=== PATIENT | female | born 1970 | race Caucasian/White ===

== ENCOUNTER 2017-09-21 11:54 | Emergency (ER) | payer MEDICAID ==
[~2017-09-21] VITALS: Ht 167.6 cm; Wt 63.0 kg
[2017-09-21 12:42] LABS: BASOPHILS # (AUTO) 0.1 X10'3 (0-0.2); BASOPHILS % (AUTO) 0.7 % (0-1); EOSINOPHILS # (AUTO) 0.5 X10'3 (0-0.9); EOSINOPHILS % (AUTO) 4.9 % (0-6); HEMATOCRIT 40.1 % (35.0-45.0); HEMOGLOBIN 13.4 g/dl (12.0-16.0); LYMPHOCYTES # (AUTO) 1.3 X10'3 (1.1-4.8); LYMPHOCYTES % (AUTO) 13.4 % (21-51); MEAN CORPUSCULAR HEMOGLOBIN 27.6 PG (27.0-31.0); MEAN CORPUSCULAR HGB CONC 33.4 % (33.0-36.5); MEAN CORPUSCULAR VOLUME 82.9 FL (78-98); MEAN PLATELET VOLUME 8.5 FL (7.4-10.4); MONOCYTES # (AUTO) 0.7 X10'3 (0-0.9); MONOCYTES % (AUTO) 6.8 % (2-12); NEUTROPHILS # (AUTO) 7.2 X10'3 (1.8-7.7); NEUTROPHILS % (AUTO) 74.2 % (42-75); PLATELET COUNT 246 X10'3 (140-440); RED BLOOD COUNT 4.84 X10'6 (4.20-5.60); RED CELL DISTRIBUTION WIDTH 14.4 % (11.5-14.5); WHITE BLOOD COUNT 9.7 X10'3 (4.5-11.0)
[2017-09-21 12:53] LABS: ALANINE AMINOTRANSFERASE 23 U/L (12-78); ALBUMIN 4.2 G/DL (3.4-5.0); ALBUMIN/GLOBULIN RATIO 1.1 (1.1-1.5); ALKALINE PHOSPHATASE 93 IU/L (46-116); ANION GAP 10 (8-16); ASPARTATE AMINO TRANSFERASE 12 U/L (10-37); BILIRUBIN,TOTAL 0.4 MG/DL (0.1-1.0); BLOOD UREA NITROGEN 9 MG/DL (7-18); BUN/CREATININE RATIO 7.7 (6.6-38.0); CALCIUM 10.2 MG/DL (8.5-10.1); CHLORIDE 105 MMOL/L (99-107); CREATININE 1.17 MG/DL (0.40-0.90); GLUCOSE 105 MG/DL (70-104); LIPASE 81 U/L (73-393); SODIUM 141 MMOL/L (135-145); TOTAL CARBON DIOXIDE 25.6 MMOL/L (24-32); eGFR 50 ML/MIN
[2017-09-21 13:33] LABS: CLARITY,URINE CLEAR (Clear); COLOR,URINE STRAW (Yellow); GLUCOSE, URINE NEGATIVE (Neg); KETONES,URINE NEGATIVE (Neg); LEUKOCYTE ESTERASE ,URINE NEGATIVE (Neg); NITRITES, URINE NEGATIVE (Neg); OCCULT BLOOD,URINE NEGATIVE (Neg); PROTEIN,URINE NEGATIVE (Neg); UROBILINOGEN,URINE 0.2 E.U/dL (0.2-1.0)
[2017-09-21 13:34] LABS: UA COLLECTION TYPE CLN CATCH MIDSTREAM
[2017-09-21 13:37] LABS: URINE HCG NEGATIVE (NEG)
[2017-09-21] MEDS ORDERED: ketorolac trometh. 30mg/ml inj. IV ONE (14:45)
[2017-09-21] MEDS ORDERED: ondansetron/PF 4mg/2ml inj IV ONE (14:45)
[2017-09-21] MEDS ORDERED: normal saline 1000ML IV soln IVB ONE (14:45)
[2017-09-21] MEDS ORDERED: ketorolac trometh inj. 60 MG/2 ML VIAL IM ONE (15:40)
[2017-09-21 15:46] VITALS: BP 121/85
== END 2017-09-21 15:47 | disposition home or self-care (01) ==
LOC: ER 11:55
DX: R10.32 Left lower quadrant pain (principal); I10 Essential (primary) hypertension; K21.9 Gastro-esophageal reflux disease without esophagitis
CPT/HCPCS: 36415; 76856; 80053; 81003; 81025; 83690; 85025; 96372; 99284; J1885; J2405

== ENCOUNTER 2018-12-26 13:56 | Emergency (ER) | payer MEDICAID | END 2018-12-26 14:32 | disposition left against medical advice (07) | LOC: ER 13:57 | DX: Z00.8 Encounter for other general examination (principal); Z53.21 Procedure and treatment not carried out due to patient leaving prior to being seen by health care provider ==

== ENCOUNTER 2018-12-30 15:33 | Emergency (ER) | payer MEDICAID ==
[~2018-12-30] VITALS: Ht 167.6 cm; Wt 59.1 kg
[~2018-12-30 15:33] MED LIST: LIDOcaine 1% w/EPI 1:100,000 30ml vial (MDV) ONE
[2018-12-30 15:46] VITALS: BP 138/79
[2018-12-30] MEDS ORDERED: DOXY100C43 PO (16:56)
== END 2018-12-30 17:17 | disposition home or self-care (01) ==
LOC: ER 15:33
DX: L02.31 Cutaneous abscess of buttock (principal); I10 Essential (primary) hypertension; K21.9 Gastro-esophageal reflux disease without esophagitis; F41.9 Anxiety disorder, unspecified; Z98.890 Other specified postprocedural states; Z88.0 Allergy status to penicillin; Z88.2 Allergy status to sulfonamides
CPT/HCPCS: 10061; 99284

== ENCOUNTER 2019-05-19 14:14 | Emergency (ER) | payer MEDICAID ==
[~2019-05-19] VITALS: Ht 167.6 cm; Wt 63.0 kg
[2019-05-19 14:18] VITALS: BP 136/79
[2019-05-19 14:39] LABS: CLARITY,URINE CLOUDY (Clear); COLOR,URINE STRAW (Yellow); GLUCOSE, URINE NEGATIVE (Neg); KETONES,URINE NEGATIVE (Neg); LEUKOCYTE ESTERASE ,URINE LARGE (Neg); NITRITES, URINE NEGATIVE (Neg); OCCULT BLOOD,URINE SMALL (Neg); PROTEIN,URINE NEGATIVE (Neg); UROBILINOGEN,URINE 0.2 E.U/dL (0.2-1.0)
[2019-05-19 14:40] LABS: UA COLLECTION TYPE CLN CATCH MIDSTREAM
[2019-05-19 14:46] LABS: WBC CLUMPS,URINE MANY /HPF (NEGATIVE); WBC,URINE TNTC /HPF (0-4)
[2019-05-19 14:48] LABS: BACTERIA,URINE 3+ /HPF (Neg); SQUAMOUS EPITHELIAL CELL,UR FEW /LPF (FEW)
[2019-05-19 14:51] LABS: RBC,URINE 0-2 /HPF (0-2)
[2019-05-19] MEDS ORDERED: PHEN-716 PO (14:51)
[2019-05-19] MEDS ORDERED: NITR100C6 PO (14:51)
[2019-05-19 14:54] LABS: TRANSITIONAL EPI CELLS,URINE FEW /HPF
== END 2019-05-19 15:02 | disposition home or self-care (01) ==
LOC: ER 14:15
DX: N39.0 Urinary tract infection, site not specified (principal); I10 Essential (primary) hypertension; K21.9 Gastro-esophageal reflux disease without esophagitis; F41.9 Anxiety disorder, unspecified; Z98.890 Other specified postprocedural states; Z88.0 Allergy status to penicillin; Z88.2 Allergy status to sulfonamides; Z79.899 Other long term (current) drug therapy
CPT/HCPCS: 81001; 87077; 87088; 87186; 99283

== ENCOUNTER 2019-08-29 12:47 | Emergency (ER) | payer MEDICAID ==
[~2019-08-29] VITALS: Ht 167.6 cm; Wt 64.2 kg
[~2019-08-29 12:47] MED LIST changes: -LIDOcaine 1% w/EPI 1:100,000 30ml vial (MDV) ONE; +NITR100C6 PO; +PHEN-716 PO
[2019-08-29] MEDS ORDERED: QUET-1 PO (13:55)
[2019-08-29] MEDS ORDERED: LIT300C PO (13:55)
[2019-08-29 14:07] VITALS: BP 134/75
== END 2019-08-29 14:09 | disposition home or self-care (01) ==
LOC: ER 12:48
DX: F20.9 Schizophrenia, unspecified (principal); I10 Essential (primary) hypertension; K21.9 Gastro-esophageal reflux disease without esophagitis; F41.9 Anxiety disorder, unspecified; Z87.59 Personal history of other complications of pregnancy, childbirth and the puerperium; Z76.0 Encounter for issue of repeat prescription; Z88.0 Allergy status to penicillin; Z88.2 Allergy status to sulfonamides; Z79.899 Other long term (current) drug therapy
CPT/HCPCS: 99281

== ENCOUNTER 2020-08-21 15:28 | Emergency (ER) | payer MEDICARE, MEDICAID ==
[~2020-08-21] VITALS: Ht 167.6 cm; Wt 68.2 kg
[~2020-08-21 15:28] MED LIST changes: +LIT300C PO; +QUET-1 PO
[2020-08-21 15:54] VITALS: BP 128/92
[2020-08-21] MEDS ORDERED: LIT300C PO (16:02)
[2020-08-21] MEDS ORDERED: QUET-1 PO (16:02)
== END 2020-08-21 16:25 | disposition home or self-care (01) ==
LOC: ER 15:28
DX: F31.9 Bipolar disorder, unspecified (principal); I10 Essential (primary) hypertension; K21.9 Gastro-esophageal reflux disease without esophagitis; Z76.0 Encounter for issue of repeat prescription; Z72.89 Other problems related to lifestyle; Z98.891 History of uterine scar from previous surgery; Z88.0 Allergy status to penicillin; Z88.2 Allergy status to sulfonamides; Z79.899 Other long term (current) drug therapy
CPT/HCPCS: 99281

== ENCOUNTER 2020-08-31 10:41 | Emergency (ER) | payer MEDICARE, MEDICAID ==
[2020-08-31 10:55] VITALS: BP 153/76
--- NOTE | 2020-08-31 11:22 | NUR ---
Duane SY at bedside.
[2020-08-31] MEDS ORDERED: LITH300C PO (11:34)
[2020-08-31] MEDS ORDERED: QUET100T33 PO (11:34)
== END 2020-08-31 11:52 | disposition home or self-care (01) ==
LOC: ER 10:42
DX: F41.9 Anxiety disorder, unspecified (principal); Z76.0 Encounter for issue of repeat prescription; I10 Essential (primary) hypertension; K21.9 Gastro-esophageal reflux disease without esophagitis; F20.9 Schizophrenia, unspecified; Z98.891 History of uterine scar from previous surgery; Z88.0 Allergy status to penicillin; Z88.2 Allergy status to sulfonamides; Z79.899 Other long term (current) drug therapy
CPT/HCPCS: 93005; 99283

== ENCOUNTER 2021-04-20 13:35 | Emergency (ER) | payer BC, MEDICAID ==
[~2021-04-20] VITALS: Ht 167.6 cm; Wt 65.9 kg
[~2021-04-20 13:35] MED LIST changes: +LITH300C PO; +QUET100T34 PO
[2021-04-20 16:03] VITALS: BP 128/77
== END 2021-04-20 16:06 | disposition home or self-care (01) ==
LOC: ER 13:36
DX: T40.411A Poisoning by fentanyl or fentanyl analogs, accidental (unintentional), initial encounter (principal); I10 Essential (primary) hypertension; K21.9 Gastro-esophageal reflux disease without esophagitis; Z98.890 Other specified postprocedural states; Z88.0 Allergy status to penicillin; Z88.2 Allergy status to sulfonamides; Z79.899 Other long term (current) drug therapy; Y92.89 Other specified places as the place of occurrence of the external cause
CPT/HCPCS: 93005; 99284

== ENCOUNTER 2021-05-30 13:47 | Emergency (ER) | payer BC, MEDICAID ==
[~2021-05-30] VITALS: Ht 167.6 cm; Wt 61.2 kg
[2021-05-30 13:56] VITALS: BP 146/74
[2021-05-30 14:39] LABS: CLARITY,URINE TURBID (Clear); GLUCOSE, URINE NEGATIVE (Neg); KETONES,URINE NEGATIVE (Neg); LEUKOCYTE ESTERASE ,URINE LARGE (Neg); NITRITES, URINE NEGATIVE (Neg); OCCULT BLOOD,URINE MODERATE (Neg); PROTEIN,URINE 30 mg/dl (Neg); UROBILINOGEN,URINE 0.2 E.U/dL (0.2-1.0)
[2021-05-30 14:46] LABS: COLOR,URINE STRAW (Yellow); UA COLLECTION TYPE CLN CATCH MIDSTREAM
[2021-05-30 14:48] LABS: WBC,URINE TNTC /HPF (0-4)
[2021-05-30 14:49] LABS: BACTERIA,URINE 3+ /HPF (Neg); MUCUS STRANDS NONE SEEN /LPF (Neg); SQUAMOUS EPITHELIAL CELL,UR NONE SEEN /LPF (FEW); WBC CLUMPS,URINE MANY /HPF (NEGATIVE)
[2021-05-30] MEDS ORDERED: PHEN-716 PO (15:37)
[2021-05-30] MEDS ORDERED: NITR100C6 PO (15:37)
[2021-05-30] MEDS ORDERED: phenazopyridine 100mg tablet PO ONE (16:00)
== END 2021-05-30 16:22 | disposition home or self-care (01) ==
LOC: ER 13:48
DX: N39.0 Urinary tract infection, site not specified (principal); R30.9 Painful micturition, unspecified; R11.0 Nausea; I10 Essential (primary) hypertension; K21.9 Gastro-esophageal reflux disease without esophagitis; F41.9 Anxiety disorder, unspecified; F20.9 Schizophrenia, unspecified; F19.90 Other psychoactive substance use, unspecified, uncomplicated; Z87.440 Personal history of urinary (tract) infections; Z98.890 Other specified postprocedural states; Z88.0 Allergy status to penicillin; Z88.2 Allergy status to sulfonamides; Z79.899 Other long term (current) drug therapy
CPT/HCPCS: 81001; 87077; 87088; 87186; 99283

== ENCOUNTER 2021-10-27 23:36 | Emergency (ER) | payer BC, MEDICAID ==
[~2021-10-27] VITALS: Ht 167.6 cm; Wt 59.1 kg
[2021-10-28 01:29] LABS: BASOPHILS % (AUTO) 0.4 % (0-1); EOSINOPHILS # (AUTO) 0.4 X10'3 (0-0.9); EOSINOPHILS % (AUTO) 4.2 % (0-6); HEMATOCRIT 39.4 % (35.0-45.0); HEMOGLOBIN 12.7 g/dl (12.0-16.0); LYMPHOCYTES # (AUTO) 1.9 X10'3 (1.1-4.8); LYMPHOCYTES % (AUTO) 18.9 % (21-51); MEAN CORPUSCULAR HEMOGLOBIN 27.1 PG (27.0-31.0); MEAN CORPUSCULAR HGB CONC 32.2 g/dL (33.0-36.5); MEAN CORPUSCULAR VOLUME 83.9 FL (78-98); MEAN PLATELET VOLUME 8.7 FL (7.4-10.4); MONOCYTES # (AUTO) 0.7 X10'3 (0-0.9); MONOCYTES % (AUTO) 6.7 % (2-12); NEUTROPHILS % (AUTO) 69.8 % (42-75); PLATELET COUNT 245 X10'3 (140-440); RED BLOOD COUNT 4.69 X10'6 (4.20-5.60); RED CELL DISTRIBUTION WIDTH 14.8 % (11.5-14.5); WHITE BLOOD COUNT 10.1 X10'3 (4.5-11.0)
[2021-10-28 01:42] LABS: ALANINE AMINOTRANSFERASE 13 U/L (12-78); ALBUMIN 4.4 G/DL (3.4-5.0); ALBUMIN/GLOBULIN RATIO 1.2 (1.1-1.5); ALKALINE PHOSPHATASE 106 IU/L (46-116); ASPARTATE AMINO TRANSFERASE 11 U/L (10-37); BILIRUBIN,TOTAL 0.3 MG/DL (0.1-1.0); BLOOD UREA NITROGEN 14 MG/DL (7-18); CALCIUM 10.4 MG/DL (8.5-10.1); CREATININE 1.55 MG/DL (0.40-0.90); GLUCOSE 97 MG/DL (70-104); LIPASE 53 U/L (73-393); TOTAL PROTEIN 8.2 G/DL (6.4-8.2); eGFR 35 ML/MIN
[2021-10-28 01:43] LABS: ANION GAP 8 (8-16); CHLORIDE 105 MMOL/L (99-107); POTASSIUM 3.6 MMOL/L (3.5-5.1); SODIUM 139 MMOL/L (135-145); TOTAL CARBON DIOXIDE 26.1 MMOL/L (24-32)
[2021-10-28 04:29] LABS: CLARITY,URINE CLEAR (Clear); GLUCOSE, URINE NEGATIVE (Neg); KETONES,URINE NEGATIVE (Neg); LEUKOCYTE ESTERASE ,URINE NEGATIVE (Neg); NITRITES, URINE NEGATIVE (Neg); OCCULT BLOOD,URINE NEGATIVE (Neg); PROTEIN,URINE NEGATIVE (Neg); UROBILINOGEN,URINE 0.2 E.U/dL (0.2-1.0)
[2021-10-28 04:30] LABS: COLOR,URINE STRAW (Yellow); UA COLLECTION TYPE CLN CATCH MIDSTREAM
[2021-10-28] MEDS ORDERED: normal saline 1000ML IV soln IVB ONE (10:35)
[2021-10-28] MEDS ORDERED: pantoprazole 40 MG vial IV ONE (10:35)
[2021-10-28] MEDS ORDERED: ondansetron/PF 4mg/2ml inj IV ONE (10:35)
[2021-10-28] MEDS ORDERED: pantoprazole 40MG/NS 100ML BAG 100 ML IV SCH (11:35)
[2021-10-28] MEDS ORDERED: ONDA8TAB13 PO (11:53)
[2021-10-28] MEDS ORDERED: PANT-47 PO (11:53)
[2021-10-28] MEDS ORDERED: CLON-369 PO (13:02)
[2021-10-28] MEDS ORDERED: QUET300T20 PO (13:03)
[2021-10-28] MEDS ORDERED: HYDR50TA65 PO (13:03)
[2021-10-28] MEDS ORDERED: LITH300T26 PO (13:08)
[2021-10-28] MEDS ORDERED: QUET-1 PO (13:09)
[2021-10-28 13:21] VITALS: BP 136/108
== END 2021-10-28 13:22 | disposition home or self-care (01) ==
LOC: ER 23:37
DX: R10.13 Epigastric pain (principal); R50.9 Fever, unspecified; R19.7 Diarrhea, unspecified; M54.89 Other dorsalgia; I10 Essential (primary) hypertension; K21.9 Gastro-esophageal reflux disease without esophagitis; F41.9 Anxiety disorder, unspecified; F31.9 Bipolar disorder, unspecified; F20.9 Schizophrenia, unspecified; F17.200 Nicotine dependence, unspecified, uncomplicated; F12.90 Cannabis use, unspecified, uncomplicated; Z87.440 Personal history of urinary (tract) infections; Z98.890 Other specified postprocedural states; Z88.0 Allergy status to penicillin; Z79.899 Other long term (current) drug therapy
CPT/HCPCS: 36415; 80053; 80178; 81003; 83690; 85025; 96361; 96374; 96375; 99284; C9113; J2405; J7030

== ENCOUNTER 2022-08-13 18:49 | Emergency (ER) | payer BC, MEDICAID ==
[~2022-08-13] VITALS: Ht 167.6 cm; Wt 52.3 kg
[~2022-08-13 18:49] MED LIST changes: +CLON-369 PO; +HYDR50TA65 PO; -LIT300C PO; -LITH300C PO; +LITH300T26 PO; -NITR100C6 PO; +ONDA8TAB13 PO; +PANT-47 PO; -PHEN-716 PO; -QUET100T34 PO; +QUET300T20 PO
[2022-08-13 18:58] VITALS: BP 146/94
[2022-08-13] MEDS ORDERED: normal saline 1000ML IV soln IVB ONE (19:15)
[2022-08-13 19:22] LABS: BASOPHILS % (AUTO) 0.3 % (0-1); EOSINOPHILS % (AUTO) 0.3 % (0-6); HEMATOCRIT 40.9 % (35.0-45.0); HEMOGLOBIN 13.6 g/dl (12.0-16.0); LYMPHOCYTES # (AUTO) 1.6 X10'3 (1.1-4.8); LYMPHOCYTES % (AUTO) 12.9 % (21-51); MEAN CORPUSCULAR HEMOGLOBIN 29.2 PG (27.0-31.0); MEAN CORPUSCULAR HGB CONC 33.3 g/dL (33.0-36.5); MEAN CORPUSCULAR VOLUME 87.9 FL (78-98); MEAN PLATELET VOLUME 7.5 FL (7.4-10.4); MONOCYTES # (AUTO) 0.7 X10'3 (0-0.9); NEUTROPHILS # (AUTO) 9.7 X10'3 (1.8-7.7); NEUTROPHILS % (AUTO) 80.5 % (42-75); PLATELET COUNT 233 X10'3 (140-440); RED BLOOD COUNT 4.65 X10'6 (4.20-5.60); RED CELL DISTRIBUTION WIDTH 13.9 % (11.5-14.5); WHITE BLOOD COUNT 12.1 X10'3 (4.5-11.0)
[2022-08-13 19:36] LABS: ALANINE AMINOTRANSFERASE 17 U/L (12-78); ALBUMIN 4.6 G/DL (3.4-5.0); ALBUMIN/GLOBULIN RATIO 1.4 (1.1-1.5); ALKALINE PHOSPHATASE 91 IU/L (46-116); ANION GAP 9 (8-16); ASPARTATE AMINO TRANSFERASE 18 U/L (10-37); BILIRUBIN,TOTAL 0.3 MG/DL (0.1-1.0); BLOOD UREA NITROGEN 12 MG/DL (7-18); BUN/CREATININE RATIO 9.6 (6.6-38.0); CALCIUM 10.8 MG/DL (8.5-10.1); CHLORIDE 104 MMOL/L (99-107); CREATININE 1.25 MG/DL (0.40-0.90); GLUCOSE 126 MG/DL (70-104); POTASSIUM 3.4 MMOL/L (3.5-5.1); SODIUM 140 MMOL/L (135-145); TOTAL CARBON DIOXIDE 26.9 MMOL/L (24-32); eGFR 45 ML/MIN
[2022-08-13 20:02] LABS: ETHANOL < 0.010 GM/DL (0.0-0.010)
[2022-08-13 21:30] LABS: CLARITY,URINE CLEAR (Clear); COLOR,URINE STRAW (Yellow); GLUCOSE, URINE NEGATIVE (Neg); KETONES,URINE NEGATIVE (Neg); LEUKOCYTE ESTERASE ,URINE NEGATIVE (Neg); NITRITES, URINE NEGATIVE (Neg); OCCULT BLOOD,URINE NEGATIVE (Neg); PROTEIN,URINE NEGATIVE (Neg); URINE HCG NEGATIVE (NEG); UROBILINOGEN,URINE 0.2 E.U/dL (0.2-1.0)
[2022-08-13 21:35] LABS: UA COLLECTION TYPE CLN CATCH MIDSTREAM
[2022-08-13 21:47] LABS: URINE AMPHETAMINE SCREEN NEGATIVE (Neg); URINE BARBITUATE SCREEN NEGATIVE (Neg); URINE BENZODIAZEPINES SCREEN NEGATIVE (Neg); URINE CANNABINOID SCREEN POSITIVE (Neg); URINE COCAINE SCREEN NEGATIVE (Neg); URINE METHADONE SCREEN NEGATIVE (Neg); URINE OPIATE SCREEN NEGATIVE (Neg); URINE PHENCYCLIDINE SCREEN NEGATIVE (Neg)
[2022-08-13] MEDS ORDERED: QUEtiapine 25mg tablet PO STA ×2 (22:10→22:15)
[2022-08-13] MEDS ORDERED: quetiapine 100mg tablet PO STA (22:15)
[2022-08-13] MEDS ORDERED: QUET150T2 PO (22:18)
== END 2022-08-13 22:35 | disposition home or self-care (01) ==
LOC: ER 18:50
DX: G47.00 Insomnia, unspecified (principal); I10 Essential (primary) hypertension; K21.9 Gastro-esophageal reflux disease without esophagitis; F31.9 Bipolar disorder, unspecified; F20.9 Schizophrenia, unspecified; Z88.0 Allergy status to penicillin; Z88.2 Allergy status to sulfonamides; Z79.899 Other long term (current) drug therapy; Z79.1 Long term (current) use of non-steroidal anti-inflammatories (NSAID)
CPT/HCPCS: 36415; 80053; 80305; 80320; 81003; 81025; 85025; 96360; 99283; J7030

== ENCOUNTER 2022-11-08 10:48 | Inpatient (IN) | payer BC, MEDICAID ==
[~2022-11-08] VITALS: Ht 167.6 cm; Wt 47.6 kg
[~2022-11-08 10:48] MED LIST changes: +QUET150T2 PO
[2022-11-08 11:34] LABS: BASOPHILS % (AUTO) 0.4 % (0-1); EOSINOPHILS # (AUTO) 0.1 X10'3 (0-0.9); EOSINOPHILS % (AUTO) 1.3 % (0-6); HEMATOCRIT 38.4 % (35.0-45.0); HEMOGLOBIN 13.1 g/dl (12.0-16.0); LYMPHOCYTES # (AUTO) 1.4 X10'3 (1.1-4.8); LYMPHOCYTES % (AUTO) 17.7 % (21-51); MEAN CORPUSCULAR HEMOGLOBIN 29.4 PG (27.0-31.0); MEAN CORPUSCULAR VOLUME 86.4 FL (78-98); MEAN PLATELET VOLUME 8.2 FL (7.4-10.4); MONOCYTES # (AUTO) 0.6 X10'3 (0-0.9); MONOCYTES % (AUTO) 7.1 % (2-12); NEUTROPHILS % (AUTO) 73.5 % (42-75); PLATELET COUNT 214 X10'3 (140-440); RED BLOOD COUNT 4.44 X10'6 (4.20-5.60); RED CELL DISTRIBUTION WIDTH 13.6 % (11.5-14.5); WHITE BLOOD COUNT 8.2 X10'3 (4.5-11.0)
--- NOTE | 2022-11-08 11:40 | NUR ---
Pt changed her clothes into green scrubs. Pt is talkative.
[2022-11-08 11:53] LABS: ALANINE AMINOTRANSFERASE 22 U/L (12-78); ALBUMIN 4.6 G/DL (3.4-5.0); ALBUMIN/GLOBULIN RATIO 1.6 (1.1-1.5); ALKALINE PHOSPHATASE 105 IU/L (46-116); ANION GAP 12 (8-16); ASPARTATE AMINO TRANSFERASE 21 U/L (10-37); BILIRUBIN,TOTAL 0.5 MG/DL (0.1-1.0); BLOOD UREA NITROGEN 15 MG/DL (7-18); BUN/CREATININE RATIO 10.6 (10.0-20.0); CALCIUM 10.2 MG/DL (8.5-10.1); CHLORIDE 101 MMOL/L (99-107); CREATININE 1.42 MG/DL (0.40-0.90); ETHANOL < 0.010 GM/DL (0.0-0.010); GLUCOSE 140 MG/DL (70-104); POTASSIUM 3.2 MMOL/L (3.5-5.1); SODIUM 138 MMOL/L (135-145); TOTAL PROTEIN 7.5 G/DL (6.4-8.2); eGFR 39 ML/MIN
[2022-11-08 12:04] LABS: URINE HCG NEGATIVE (NEG)
[2022-11-08 12:11] LABS: CLARITY,URINE CLEAR (Clear); COLOR,URINE STRAW (Yellow); GLUCOSE, URINE NEGATIVE (Neg); KETONES,URINE NEGATIVE (Neg); LEUKOCYTE ESTERASE ,URINE NEGATIVE (Neg); NITRITES, URINE NEGATIVE (Neg); OCCULT BLOOD,URINE NEGATIVE (Neg); PROTEIN,URINE NEGATIVE (Neg); UROBILINOGEN,URINE 0.2 E.U/dL (0.2-1.0)
[2022-11-08 12:12] LABS: UA COLLECTION TYPE CLN CATCH MIDSTREAM
[2022-11-08 12:13] LABS: URINE AMPHETAMINE SCREEN NEGATIVE (Neg); URINE BARBITUATE SCREEN NEGATIVE (Neg); URINE BENZODIAZEPINES SCREEN NEGATIVE (Neg); URINE CANNABINOID SCREEN POSITIVE (Neg); URINE COCAINE SCREEN NEGATIVE (Neg); URINE METHADONE SCREEN NEGATIVE (Neg); URINE OPIATE SCREEN NEGATIVE (Neg); URINE PHENCYCLIDINE SCREEN NEGATIVE (Neg)
[2022-11-08] MEDS ORDERED: potassium Cl 20 mEq SR tablet PO ONE (12:20)
--- NOTE | 2022-11-08 12:50 | NUR ---
Pt up to RR. Pt ate 100% of her lunch.
[2022-11-08] MEDS ORDERED: LORazepam 1 MG tablet PO ONE (13:05)
[2022-11-08] MEDS ORDERED: quetiapine 100mg tablet PO PRN (13:15)
--- NOTE | 2022-11-08 13:28 | NUR ---
Pt up pacing the moran. Pt had to be redirected to her room. New order for Ativan.
--- NOTE | 2022-11-08 13:57 | NUR ---
PT REQUESTED A PHONE TO CALL HER SON. PHONE CALL WAS PLACED, NO ANSWER AND A MSG LEFT.
--- NOTE | 2022-11-08 14:08 | NUR ---
Pt is calm sitting on her bed
--- NOTE | 2022-11-08 14:45 | NUR ---
Pt ambulated independently from main ED to OF bed #26. Pt was calm, presented with hyperverbal speech. Pt given warm blanket, snacks and a pitcher of water.
--- NOTE | 2022-11-08 15:15 | NUR ---
Reviewed med rec and clarified with patient. Pt has not taken any medications since Jan 2022. Pt reports she used to be followed by [facility] "and then they just cut me off!" "I am homeless because of them!" Pt became tearful and loud, conventional mortgage underwriter distracted pt which decreaed elevation. Pt then said she was taken off [place] because "kidney failure." Pt reports she lives in a trailer then she said she lives in a tent.
--- NOTE | 2022-11-08 16:30 | NUR ---
Pt resting comfortably on right side, respirations even and unlabored.
[2022-11-08] MEDS ORDERED: NO HOME MEDS (17:04)
[2022-11-08] MEDS ORDERED: quetiapine 100mg tablet PO ONE (18:15)
[2022-11-08] MEDS ORDERED: LORazepam 2 mg/ml vial ONE (18:21)
[2022-11-08] MEDS ORDERED: haloperidol lactate 5mg/ml inj ONE (18:22)
[2022-11-08] MEDS ORDERED: diphenhydrAMINE 50 mg/ml inj ONE (18:31)
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
--- NOTE | 2022-11-08 18:40 | NUR ---
Received order for emergency medication Haldol 10mg, Ativan 2 mg, Benadryl 50mg. IM given in left thigh and right thigh.
--- NOTE | 2022-11-08 18:42 | NUR ---
The patient was given IM medications, restraints in place. The patient continues to yell
--- NOTE | 2022-11-08 18:54 | NUR ---
Reviewed med rec with .
--- NOTE | 2022-11-08 19:03 | NUR ---
Now dose of Seroquel dose 2nd to emergency medications given IM.
--- NOTE | 2022-11-08 19:25 | NUR ---
The patient appears to be sleeping. Restraints removed.
--- NOTE | 2022-11-08 20:30 | NUR ---
The patient appears to be sleeping.
[2022-11-08] MEDS: quetiapine fumarate ER 300mg tablet PO SCH (21:00)
[2022-11-08] MEDS ORDERED: hydrOXYzine 25 MG tablet PO SCH (21:00)
[2022-11-08] MEDS ORDERED: lithium carbonate 300mg SR tablet (LithoBID) PO SCH (21:00)
--- NOTE | 2022-11-08 21:04 | NUR ---
MALA powell held 2nd to patient's sedation from emergency IM medications.
--- NOTE | 2022-11-08 22:17 | NUR ---
The patient appears to be sleeping
--- NOTE | 2022-11-08 23:01 | NUR ---
The patient appears to be sleeping
--- NOTE | 2022-11-09 01:13 | NUR ---
The patient appears to be sleeping
[2022-11-09] MEDS: quetiapine 100mg tablet PO PRN ×2 (02:41→13:07)
--- NOTE | 2022-11-09 02:49 | NUR ---
The patient is awake, loud and demanding for a brief period but is now resting back on her bed.
--- NOTE | 2022-11-09 05:03 | NUR ---
The patient appears to be sleeping
--- NOTE | 2022-11-09 06:35 | NUR ---
Patient sleeping supine. No distress observed. Continue to monitor.
--- NOTE | 2022-11-09 07:50 | NUR ---
Patient up to the nurses station. Patient left a voicemail for her son. Patient states her son is upset at her and afraid of her mental illness. Patient has been off meds for Bipolar d/o since 01/02.
--- NOTE | 2022-11-09 08:09 | NUR ---
Patient eating breakfast. No distress observed. Continue to monitor.
[2022-11-09] MEDS: clonazePAM 0.5mg tablet PO SCH (08:21)
--- NOTE | 2022-11-09 10:32 | NUR ---
Patient continues to sleep supine. No distress observed. Continue to monitor.
--- NOTE | 2022-11-09 12:11 | NUR ---
Patient eating lunch. No distress observed. Continue to monitor.
--- NOTE | 2022-11-09 13:08 | NUR ---
Patient is anxious and RN gave patient her PRN Seroquel. Patient wanted an Ativan but there is not a current order for Ativan. Continue to monitor.
--- NOTE | 2022-11-09 14:26 | NUR ---
Patient sleeping on her left side. No distress observed. Continue to monitor.
[2022-11-09] MEDS ORDERED: LORazepam 1 MG tablet PO PRN (14:45)
--- NOTE | 2022-11-09 19:34 | NUR ---
Patient has been resting in room at this time. No acute distress at this time. Has been complient this last hour.
[2022-11-09] MEDS: quetiapine fumarate ER 300mg tablet PO SCH (20:11)
--- NOTE | 2022-11-09 22:33 | NUR ---
Patient has been walking up and down the unit being anxoius. PRN alprazolam will be administered. NAD
--- NOTE | 2022-11-10 00:57 | NUR ---
Patient is currently up walking around the unit, no acute distress at this time.
[2022-11-10] MEDS ORDERED: LORazepam 2 mg/ml vial IM STA (01:00)
[2022-11-10] MEDS ORDERED: haloperidol lactate 5mg/ml inj IM STA (01:00)
[2022-11-10] MEDS ORDERED: diphenhydrAMINE 50 mg/ml inj IM STA (01:00)
--- NOTE | 2022-11-10 01:01 | NUR ---
pt pacing. made aware, VO for medication written.
--- NOTE | 2022-11-10 02:54 | NUR ---
Patient sleeping in bed, NAD. Tolerated the B502 injection well. Will continue to monitor.
--- NOTE | 2022-11-10 04:39 | NUR ---
Patient is sleeping in bed at this time. Appears to be comfrtaeble. No s/s of acute distress.
--- NOTE | 2022-11-10 07:00 | NUR ---
Received Pt in bed sleeping w/o distress at the beginning of this shift.
[2022-11-10] MEDS: clonazePAM 0.5mg tablet PO SCH (09:23)
--- NOTE | 2022-11-10 09:30 | NUR ---
Pt woke and used bathroom. Pt ate breakfast well and took AM med w/o issue. Pt became irritated with staff but able to calm and has been appropriate in last few interactions.
--- NOTE | 2022-11-10 10:00 | NUR ---
Pt asked for gatorade- states she needs to "keep her electrolytes up". This field underwriter advised to pt that we do not have gatorade on hand, but I will look into seeing if we can order an electrolyte packet to mix into her water. Pt wanted to take a shower- she was supplied w/ a full bin of toiletry supplies for a bedside bath.
--- NOTE | 2022-11-10 11:30 | NUR ---
Breaking RN pt. asleep on left side. Respirations 12, even and unlabored.
[2022-11-10 16:10] VITALS: BP 99/75
--- NOTE | 2022-11-10 16:10 | NUR ---
ADMISSION NOTE: Pt. admitted from ER OF on 5150. 5150 states, "you were confused, labile, exhibiting elevated affect, tangential speech, fearful for your safety, and unable to report a viable plan for food, clothing, and long term". Pt. escorted by unit staff and security. Pt. cooperative with admission assessment and skin check. Pt. showered. Pt. is tangential and hyperverbal during interview. Pt. reports that she is here because she had no food and could not pay for propane in her trailer and kept coming to the [place] [facility] unit. Pt. states that 3 years ago she was taken off of her [place] due to worsening kidney function and that she had taken it for 30 years. Pt. reports feeling socially isolated and states her son cut off communication with her and stoppoed paying for her trailer home. During 1:1 interview, pt. started to cry hysterically stating, "They took my son from me... That whore took my son!". Pt. given Ativan1 mg po with good effect. Pt. was able to calm down quickly.
[2022-11-10] MEDS ORDERED: loperamide 2mg capsule PO PRN (16:25)
[2022-11-10] MEDS ORDERED: mag hydrox/Alum hydrox/simeth 30ml oral suspension PO PRN (16:25)
[2022-11-10] MEDS: NICOTINE POLACRILEX 2 MG LOZENGE BC PRN ×2 (16:51→22:34)
[2022-11-10] MEDS ORDERED: nicotine 21mg patch - 24 hr TD ONE (16:55)
[2022-11-10] MEDS ORDERED: QUET300T5 PO (17:31)
[2022-11-10] MEDS ORDERED: CLON-528 PO (17:31)
[2022-11-10] MEDS ORDERED: QUET-1 PO (17:31)
[2022-11-10] MEDS ORDERED: LORA-269 PO (17:31)
[2022-11-10] MEDS: magnesium hydroxide 30ml (MOM) UD suspension PO PRN (17:46)
[2022-11-10] MEDS ORDERED: potassium Cl 20 mEq SR tablet PO PRN (18:40)
[2022-11-10 19:36] VITALS: BP 162/80
[2022-11-10] MEDS: quetiapine fumarate ER 300mg tablet PO SCH (20:03)
[2022-11-10] MEDS: LORazepam 0.5 MG tablet PO PRN (20:04)
[2022-11-10] MEDS: acetaminophen 325mg tablet PO PRN (20:04)
[2022-11-10] MEDS: hydrOXYzine 25 MG tablet PO PRN (22:34)
--- NOTE | 2022-11-11 01:55 | NUR ---
Nursing Progress Note: Problem: Pt. admitted from ER OF on 5150. 5150 states, "you were confused, labile, exhibiting elevated affect, tangential speech, fearful for your safety, and unable to report a viable plan for food, clothing, and longterm". Pt. cooperative with admission assessment. Pt. is tangential and hyperverbal during interview. Pt. reports that she is here because she had no food and could not pay for propane in her trailer and kept coming to the [place] [facility] unit. Pt. states that 3 years ago she was taken off of her [place] due to worsening kidney function and that she had taken it for 30 years. Pt. reports feeling socially isolated and states her son cut off communication with her and stopped paying for her trailer home. During interview, pt. started to cry hysterically stating, "They took my son from me... That whore took my son!". Pt. given Ativan 1mg po with good effect. Interventions: 1:1 assessment, therapeutic communication, active listening, medication administration/education/monitoring, provided clear and simple instructions, ensured contract for safety. Response: Patient is pleasant and cooperative with care; compliant with medication. PRN Atarax and Ativan provided for anxiety. PRN Tylenol for chronic neck and back pain provided. PRN Nicotine lozenges provided and patch removed. Patient denied SI, HI, A/VH; no apparent delusions expressed. She was social with peers, watched TV in the community room and participated in HS snack prior to bed; observed sleeping and does not appear to be having difficulty. Plan: Patient requires interruption of current crisis and possible medication adjustments in a safe and therapeutic environment.
[2022-11-11] MEDS: NICOTINE POLACRILEX 2 MG LOZENGE BC PRN ×3 (02:31→20:42)
[2022-11-11] MEDS: LORazepam 0.5 MG tablet PO PRN ×2 (06:47→22:43)
[2022-11-11] MEDS: acetaminophen 325mg tablet PO PRN (06:47)
[2022-11-11 07:27] VITALS: BP 116/91
[2022-11-11] MEDS: nicotine 21mg patch - 24 hr TD SCH (07:54)
--- NOTE | 2022-11-11 08:50 | NUR ---
Noted pt with a low BMI of 16.9 using standing scaled wt of 47.6 kg. Pt reports 2-13 lb wt loss though denies wt loss being unintentional or decreased appetite/PO intake per malnutrition risk screen with RN. Pt on a regular/SB6 diet d/t no dentures per diet order and pt eating well, documented with 100% PO intake of all meals with the exception of ~38% PO intake of one meal, overall meeting estimated nutrient needs. Pt with no documented decrease in muscle strength or edema. Pt currently lacks a minimum of two criteria for malnutrition. Will continue to follow. Addendum: 11/11/22 at [address] Amended: Links added.
[2022-11-11] MEDS: clonazePAM 0.5mg tablet PO SCH (08:56)
[2022-11-11 10:22] LABS: CHOLESTEROL 154 MG/DL (0-200); HDL CHOLESTEROL 52 MG/DL (35-60); LDL CHOLESTEROL 79 MG/DL (50-100); POTASSIUM 4.6 MMOL/L (3.5-5.1); TRIGLYCERIDES 91 MG/DL (20-135)
[2022-11-11] MEDS: magnesium hydroxide 30ml (MOM) UD suspension PO PRN (10:48)
[2022-11-11 11:05] LABS: HEMOGLOBIN A1C 5.2 % (4.5-6.2)
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
[2022-11-11] MEDS ORDERED: polyethylene glycol 3350 17gm powd pack PO ONE (18:10)
[2022-11-11] MEDS: polyethylene glycol 3350 17gm powd pack PO SCH ×2 (18:13→20:42)
[2022-11-11 19:00] VITALS: BP 136/92
[2022-11-11] MEDS: quetiapine fumarate ER 300mg tablet PO SCH (20:42)
[2022-11-11] MEDS: hydrOXYzine 25 MG tablet PO PRN (20:42)
[2022-11-11] MEDS: quetiapine 100mg tablet PO PRN (22:05)
--- NOTE | 2022-11-12 04:16 | NUR ---
Nursing Progress Note: Problem: Pt. admitted from ER OF on 5150. 5150 states, "you were confused, labile, exhibiting elevated affect, tangential speech, fearful for your safety, and unable to report a viable plan for food, clothing, and mcfp". Pt. cooperative with admission assessment. Pt. is tangential and hyperverbal during interview. Pt. reports that she is here because she had no food and could not pay for propane in her trailer and kept coming to the [place] [facility] unit. Pt. states that 3 years ago she was taken off of her [place] due to worsening kidney function and that she had taken it for 30 years. Pt. reports feeling socially isolated and states her son cut off communication with her and stopped paying for her trailer home. During interview, pt. started to cry hysterically stating, "They took my son from me... That whore took my son!". Pt. given Ativan 1mg po with good effect. Interventions: 1:1 assessment, therapeutic communication, active listening, medication administration/education/monitoring, provided clear and simple instructions, ensured contract for safety. Response: Patient is cooperative with care; made a lot of somatic complaints this shift. C/o "hot flashes" and later on c/o pain during urination. Patient is signed voluntary this shift. She denied SI, HI, A/VH; no apparent delusions expressed. Patient appeared elevated; pacing the moran quickly, singing and dancing. She was compliant with medication. PRNs Atarax, Quetiapine and Ativan provided for anxiety. PRN Nicotine lozenge provided and patch removed. Patient showered, participated in HS snack and watched TV in the community room prior to bed. She appeared to fight going to sleep this shift but once she laid down she has not appeared to have difficulty sleeping. Plan: Patient requires interruption of current crisis and possible medication adjustments in a safe and therapeutic environment. Addendum: 11/12/22 at 0535 by Xiomara Marino RN WORK DISTRIBUTOR DOCUMENTATION: I have reviewed the WORK DISTRIBUTOR progress note. Xiomara Marino RN Addendum: 11/14/22 at 0334 by Xiomara Marino RN WORK DISTRIBUTOR PROGRESS NOTE: I have reviewed the WORK DISTRIBUTOR note. Xiomara Marino RN
[2022-11-12] MEDS: clonazePAM 0.5mg tablet PO SCH (06:44)
[2022-11-12] MEDS: NICOTINE POLACRILEX 2 MG LOZENGE BC PRN (06:45)
[2022-11-12] MEDS: nicotine 21mg patch - 24 hr TD SCH (06:45)
[2022-11-12 08:24] VITALS: BP 99/68
[2022-11-12] MEDS: hydrOXYzine 25 MG tablet PO PRN ×3 (08:26→20:13)
[2022-11-12] MEDS: quetiapine 100mg tablet PO PRN ×2 (09:37→22:47)
[2022-11-12] MEDS: acetaminophen 325mg tablet PO PRN ×2 (10:44→17:32)
--- NOTE | 2022-11-12 17:17 | NUR ---
Nursing Progress Note: Problem : Pt. admitted from ER OF on 515. 5150 states, "you were confused, labile, exhibiting elevated affect, tangential speech, fearful for your safety, and unable to report a viable plan for food, clothing, and skilled nursing". Pt. cooperative with admission assessment. Pt. is tangential and hyperverbal during interview. Pt. reports that she is here because she had no food and could not pay for propane in her trailer and kept coming to the [facility] [facility] unit. Interventions : Introduced self and established rapport, maintained a safe and supportive environment, provided clear and simple instruction, monitored behaviors and provided redirection as needed, provided active listening and positive encouragement, and maintained Q 15min safety checks. Response : Received pt. awake in the Observation Room at the beginning of the shift (the door was not locked). Per report form digital x ray service engineer, pt. had awoken very early and began what appeared to be intentionally making noise outside another pt's room in the hallway, she was redirected to the observation room with effectiveness. Shortly after change of shift, pt. came out of the observation room requesting her morning medications, including scheduled Clonazepam. Pt. was administered these medications and did not exhibit any further behaviors. Pt. did present with what appeared to be paranoid delusions, she pointed to a male staff member and stated, "He's looking at me!" She also made complaints about other staff members reporting that they just don't make her feel comfortable. This science writer provided active listening and assured pt. of her safety on the unit with some effectiveness. After breakfast, pt. reported ongoing anxiety and requested additional Klonopin. She was provided education by this science writer that Klonopin is only a once a day order, and pt. agreed to try PRN Atarax. When further questioned regarding the cause for her anxiety, pt. stated, "Just about everything." Pt. then pointed to a male peer and whispered to this science writer in a paranoid manner, "He's a satin worshipper." This science writer encouraged pt. to stay away from this peer and notify staff if she is feeling threatened, and she reported some understanding. A short time later, pt. again reported anxiety r/t a belief that this peer was "Following her." She was administered PRN Seroquel with effectiveness and was able to attend the [place] with others. Pt. attended group and afterwards again reported anxiety r/t the content matter of group, an additional Atarax was administered with effectiveness. Pt.exhibited what appeared to be medication seeking behaviors and reported many somatic complaints, requesting PRN medications at intervals throughout the shift. She required limit-setting and redirection with effectiveness. Plan : Pt. continues to require a safe and supportive environment.
[2022-11-12 17:18] LABS: HBSAG SCREEN Negative (Negative); HEP B CORE AB, TOT Negative (Negative)
[2022-11-12 19:18] VITALS: BP 139/96
[2022-11-12] MEDS: polyethylene glycol 3350 17gm powd pack PO SCH (20:13)
[2022-11-12] MEDS: quetiapine fumarate ER 300mg tablet PO SCH (20:13)
[2022-11-12] MEDS: QUETIAPINE 50 MG TAB.SR.24H PO SCH (20:43)
[2022-11-12] MEDS ORDERED: brexpiprazole 0.25mg tablet PO SCH (21:00)
[2022-11-12] MEDS ORDERED: quetiapine fumarate ER 300mg tablet PO SCH (21:00)
[2022-11-12] MEDS ORDERED: benztropine 1 mg/ml 2ml ampule IM ONE (23:15)
[2022-11-12] MEDS ORDERED: LORazepam 2 mg/ml vial IM ONE (23:15)
[2022-11-12] MEDS ORDERED: haloperidol lactate 5mg/ml inj IM ONE (23:15)
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
--- NOTE | 2022-11-13 05:37 | NUR ---
Nursing Progress Note: Problem: Pt. admitted from ER OF on 5150. 5150 states, "you were confused, labile, exhibiting elevated affect, tangential speech, fearful for your safety, and unable to report a viable plan for food, clothing, and group home". Pt. cooperative with admission assessment. Pt. is tangential and hyperverbal during interview. Pt. reports that she is here because she had no food and could not pay for propane in her trailer and kept coming to the [place] [facility] unit. Pt. states that 3 years ago she was taken off of her [place] due to worsening kidney function and that she had taken it for 30 years. Pt. reports feeling socially isolated and states her son cut off communication with her and stopped paying for her trailer home. During interview, pt. started to cry hysterically stating, "They took my son from me... That whore took my son!". Pt. given Ativan 1mg po with good effect. Interventions: 1:1 assessment, therapeutic communication, active listening, medication administration/education/monitoring, provided clear and simple instructions, ensured contract for safety. Response: Patient was labile and attention seeking this shift. She was compliant with medication; Nicotine patch removed. She inquired about side effects on [place] and senior medical writer educated her. Patient at that time was asking about what would happen if she began pounding on angulo and yelling d't side effects and asking "are you guys going to hurt me because of that?" Building Construction Inspector explained any side anxiety or side effects she believes be having she'd need to calmly talk with staff but nobody would intentionally cause her harm. Patient went to watch TV and social with peers in the community room until the room was closed up for the night. Patient immediately became irritable and asked senior medical writer if she had to go to sleep or if she was able to pace the unit. Building Construction Inspector explained it'd be okay for her to walk the unit quietly. Patient began reading a sign and speaking loudly about there being "so many rules" outside of peer rooms. Patient was asked to quiet her voice and she briefly went to her room. She came out of her room, yelling about being suicidal, and when she entered the observation room (where nurses were charting at the time) she stomped out and sat on the ground. She asked staff if we thought we were better than her because she was sitting on the ground in the moran and staff have "fancy chairs." Building Construction Inspector provided her PRN Quetiapine with minimal effect. Patient began yelling in her room with her roommate sleeping. Staff attempted to verbally deescalate but she continued to yell and insult people. Patient was escorted to observation room where she continued to yell and began hitting the window and angulo. Dr. Godfrey notified and IM Ativan 1mg, Haldol 5mg and Cogentin 1mg provided. Shortly after IMs administer patient removed the casing and had the light bulb above the sink fdc out before PCT stopped her. Patient eventually fell asleep; she has woken up a few times and asked to go to her bedroom. She remains in the observation room with door unlocked. Plan: Patient requires interruption of current crisis and possible medication adjustments in a safe and therapeutic environment. Addendum: 11/14/22 at 0333 by Xiomara Marino RN TELECOMMUNICATIONS ENGINEER PROGRESS NOTE: I have reviewed the TELECOMMUNICATIONS ENGINEER note. Xiomara Marino RN
[2022-11-13] MEDS: clonazePAM 0.5mg tablet PO SCH (06:44)
[2022-11-13] MEDS: nicotine 21mg patch - 24 hr TD SCH (06:46)
[2022-11-13] MEDS: hydrOXYzine 25 MG tablet PO PRN ×3 (07:47→20:25)
[2022-11-13] MEDS: acetaminophen 325mg tablet PO PRN ×3 (07:51→18:23)
[2022-11-13 08:00] VITALS: BP 117/70
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
[2022-11-13] MEDS: LORazepam 0.5 MG tablet PO PRN ×2 (13:36→22:59)
[2022-11-13] MEDS: NICOTINE POLACRILEX 2 MG LOZENGE BC PRN (15:20)
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
[2022-11-13 19:00] VITALS: BP 142/85
--- NOTE | 2022-11-13 19:44 | NUR ---
Nursing Progress Note: Problem : Pt. admitted from ER OF on 5150. 5150 states, "you were confused, labile, exhibiting elevated affect, tangential speech, fearful for your safety, and unable to report a viable plan for food, clothing, and care home". Pt. cooperative with admission assessment. Pt. is tangential and hyperverbal during interview. Pt. reports that she is here because she had no food and could not pay for propane in her trailer and kept coming to the [place] [facility] [facility] unit. Interventions : Maintained a safe and supportive environment, provided clear and simple instructions, attempted to orient to reality, monitored behaviors and provided intervention as needed, provided active listening and positive encouragement, and maintained Q 15min safety checks. Response : Patient is in her room following shift change. She was conversing with a friend. 1:1 Interview at bedside. Patient is well oriented. Her speech is rapid and tangential. Patient makes delusional statements. She complains of right flank pain and tells this senior medical writer that she has "stage 3 kidney disease." The patient requests something for anxiety, "like Klonopin." The patient tells this senior medical writer her nicotine patch was taken off in the shower. Patient is cooperative. She admits to audible and visual hallucinations but will not elaborate. Patient is intrusive when this senior medical writer is interviewing her roommate. The patient is cooperative with this senior medical writer. Patient states she had a small BM today. Plan : Pt. continues to require a safe and supportive environment and medication adjustments per Dr. Godfrey.
[2022-11-13] MEDS: QUETIAPINE 50 MG TAB.SR.24H PO SCH (20:24)
[2022-11-13] MEDS: polyethylene glycol 3350 17gm powd pack PO SCH (20:24)
[2022-11-13] MEDS: traZODone 50mg tablet PO PRN ×2 (20:25→22:59)
--- NOTE | 2022-11-13 20:26 | NUR ---
Atarax and Trazadone given as PRFN's.
[2022-11-13 22:22] LABS: CLARITY,URINE CLEAR (Clear); COLOR,URINE STRAW (Yellow); GLUCOSE, URINE NEGATIVE (Neg); KETONES,URINE NEGATIVE (Neg); LEUKOCYTE ESTERASE ,URINE NEGATIVE (Neg); NITRITES, URINE NEGATIVE (Neg); OCCULT BLOOD,URINE NEGATIVE (Neg); PH,URINE 6.5 (4.8-8.0); PROTEIN,URINE NEGATIVE (Neg); UA COLLECTION TYPE CLN CATCH MIDSTREAM; UROBILINOGEN,URINE 0.2 E.U/dL (0.2-1.0)
--- NOTE | 2022-11-13 23:00 | NUR ---
PRN Ativan given for anxiety, patient given a second Trazadone.
--- NOTE | 2022-11-13 23:23 | NUR ---
UA results are back. Unremarkable.
[2022-11-14] MEDS: quetiapine 100mg tablet PO PRN (00:05)
[2022-11-14] MEDS: acetaminophen 325mg tablet PO PRN ×4 (00:24→18:46)
[2022-11-14] MEDS: hydrOXYzine 25 MG tablet PO PRN ×2 (02:59→15:36)
--- NOTE | 2022-11-14 03:00 | NUR ---
Patient continues to pace. "I feel manic." PO Atarax 25 mg given.
--- NOTE | 2022-11-14 04:44 | NUR ---
Client would like MD to order analgesic cream.
[2022-11-14] MEDS: clonazePAM 0.5mg tablet PO SCH ×2 (07:18→20:27)
[2022-11-14] MEDS: nicotine 21mg patch - 24 hr TD SCH (07:21)
[2022-11-14 08:00] VITALS: BP 135/90
[2022-11-14] MEDS: magnesium hydroxide 30ml (MOM) UD suspension PO PRN (08:29)
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
[2022-11-14] MEDS ORDERED: pregabalin 75mg capsule PO ONE (10:55)
--- NOTE | 2022-11-14 13:30 | NUR ---
Initial: Pt admit for mood disorder and PTSD. Currently on a regular diet and eating well, documented with mostly 100% PO intake meeting estimated nutrient needs. Pt documented as constipated with LBM 11/11. Pt receiving routine and PRN bowel care. No nutrition intervention implemented at this time. Will continue to follow. Recommendations: 1) Continue regular diet 2) Routine and PRN bowel care 3) Weekly scaled weights Addendum: 11/14/22 at [address] Amended: Links added.
[2022-11-14] MEDS: NICOTINE POLACRILEX 2 MG LOZENGE BC PRN ×2 (15:36→18:19)
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
[2022-11-14 19:43] VITALS: BP 150/93
[2022-11-14] MEDS: polyethylene glycol 3350 17gm powd pack PO SCH (20:26)
[2022-11-14] MEDS: pregabalin 75mg capsule PO SCH (20:27)
[2022-11-14] MEDS ORDERED: QUETIAPINE 50 MG TAB.SR.24H PO SCH (21:00)
[2022-11-14] MEDS: LORazepam 0.5 MG tablet PO PRN (22:22)
[2022-11-15] MEDS: hydrOXYzine 25 MG tablet PO PRN ×2 (03:06→15:53)
[2022-11-15] MEDS: DICLOFENAC SODIUM 1% gel 1 APPLIC APPLIC TP PRN ×2 (04:39→17:54)
[2022-11-15] MEDS: acetaminophen 325mg tablet PO PRN ×2 (05:08→17:58)
--- NOTE | 2022-11-15 05:37 | NUR ---
Nursing Progress Note: Se Problem : Pt. admitted from ER OF on 5150. 5150 states, "you were confused, labile, exhibiting elevated affect, tangential speech, fearful for your safety, and unable to report a viable plan for food, clothing, and care home". Pt. cooperative with admission assessment. Pt. is tangential and hyperverbal during interview. Pt. reports that she is here because she had no food and could not pay for propane in her trailer and kept coming to the [place] [facility] unit. Interventions : Maintained a safe and supportive environment, provided clear and simple instructions, attempted to orient to reality, monitored behaviors and provided intervention as needed, provided active listening and positive encouragement, and maintained Q 15min safety checks. Response : Received patient. Patient sitting in chair in hallway initially. Pt asks for pain medication for urinary symptoms and wants a shower. Patient took meds well and went to sleep. Patient had some trouble sleeping and given Ativan x1, back to sleep and then woke up and wanted something more to sleep at 0300 and given Atarax. Patient remained awake and talked with nursing for a while then anxiously paced hallway and unable to go back to sleep. Pt says she "slept 6hrs and thats enough for her." Patient complained of knee pain and asked for Voltaren gel which I got from pharmacy. Patient anxious but appears appropriate and friendly, does not appear delusional. Plan : Pt. continues to require a safe and supportive environment and medication adjustments per Dr. Godfrey.
[2022-11-15 08:00] VITALS: BP 130/88
[2022-11-15] MEDS: nicotine 21mg patch - 24 hr TD SCH (08:14)
[2022-11-15] MEDS: pregabalin 75mg capsule PO SCH ×2 (08:14→20:37)
[2022-11-15] MEDS: clonazePAM 0.5mg tablet PO SCH ×2 (08:14→20:37)
[2022-11-15] MEDS: NICOTINE POLACRILEX 2 MG LOZENGE BC PRN ×3 (08:41→14:11)
[2022-11-15] MEDS: LORazepam 0.5 MG tablet PO PRN ×3 (11:25→20:37)
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
[2022-11-15 20:00] VITALS: BP 167/95
[2022-11-15] MEDS: QUEtiapine 25mg tablet PO SCH (20:37)
[2022-11-15] MEDS: traZODone 50mg tablet PO PRN (20:37)
--- NOTE | 2022-11-16 01:47 | NUR ---
Nursing Progress Note: Helen Problem : Pt. admitted from ER OF on 5150. 5150 states, "you were confused, labile, exhibiting elevated affect, tangential speech, fearful for your safety, and unable to report a viable plan for food, clothing, and senior care". Pt. cooperative with admission assessment. Pt. is tangential and hyperverbal during interview. Pt. reports that she is here because she had no food and could not pay for propane in her trailer and kept coming to the [place] [facility] unit. Interventions : Maintained a safe and supportive environment, provided clear and simple instructions, attempted to orient to reality, monitored behaviors and provided intervention as needed, provided active listening and positive encouragement, and maintained Q 15min safety checks. Response : Received pt. pacing the unit with headphones on. Pt appears to be in a hypomanic stateobserved to be in the dining room then tries to lay down in her bed. Pt is telling this parts data writer what medications she needs and that the Dr is not listening to her. She preservates on her knee pain. PRN Tylenol had just been given. Pt is compliant with HS medications and was given an ice pack for knee pain. She is observed in the dining room before bedtime watching TV with a peer. Pt given PRN trazadone, Ativan at bedtime. She is currently sleeping without any difficulties. Plan : Pt. continues to require a safe and supportive environment.
[2022-11-16] MEDS: hydrOXYzine 25 MG tablet PO PRN ×2 (02:33→14:44)
[2022-11-16] MEDS: acetaminophen 325mg tablet PO PRN ×3 (02:34→17:15)
[2022-11-16 02:46] VITALS: BP 150/90
--- NOTE | 2022-11-16 03:14 | NUR ---
Pt awoke in the middle of the night c/o flank pain "from my stage 3 kidney disease." Her nurse gave the patient Tylenol for the pain and atarax for anxiety. Pt. continued to escalate, she was crying hysterically in her room. I tried to explain to the patient that kidney disease does not normally cause pain, she started yelling "Yes it does!!!! It hurts when I walk!!!" Attempted to verbally deescalate pt, but she continues to be hysterical. Place in unlocked seclusion at this time due to being loud and disruptive. Waiting to see if the Atarax will be effective. She stated the [place]Washington was supposed to order something for pain and a muscle relaxer, but this was not in regards to flank pain.
--- NOTE | 2022-11-16 03:22 | NUR ---
Pt now reporting that she is having trouble peeing, I instructed her nurse to get the bladder scanner to assess patient.
--- NOTE | 2022-11-16 03:26 | NUR ---
Bladder scan revealed 569 cc of urine, had patient try to void, but she was unable. Contacted OCP Dr. Andres and she ordered to straight cath the patient and ordered a KUB.
--- NOTE | 2022-11-16 04:05 | NUR ---
Straight cath pt: 600ml of urine taken Bladder scanner post straight cath: 29ml of urine
[2022-11-16] MEDS: LORazepam 0.5 MG tablet PO PRN ×3 (04:14→20:12)
--- NOTE | 2022-11-16 05:50 | NUR ---
Pt singing, dancing, yelling out in the observation room, she does not appear to be in pain at this time. She continues to present as hypomanic.
[2022-11-16] MEDS ORDERED: tizanidine 4mg tablet PO PRN ×2 (06:45→07:01)
[2022-11-16] MEDS: NICOTINE POLACRILEX 2 MG LOZENGE BC PRN ×3 (07:28→12:53)
[2022-11-16] MEDS: clonazePAM 0.5mg tablet PO SCH ×2 (07:40→20:12)
[2022-11-16 08:00] VITALS: BP 133/88
[2022-11-16] MEDS: pregabalin 75mg capsule PO SCH ×2 (08:12→20:11)
[2022-11-16] MEDS: nicotine 21mg patch - 24 hr TD SCH (08:12)
--- NOTE | 2022-11-16 12:54 | NUR ---
Patient c/o being unable to void urine. Bladder scan performed 510cc noted. Encouraged patient to utilize BRP, with success voiding. Post residual bladder scan performed, 100cc noted. Patient reports complete relief.
--- NOTE | 2022-11-16 16:34 | NUR ---
Nursing Progress Note: Problem : Pt. admitted from ER OF on 5150. 5150 states, "you were confused, labile, exhibiting elevated affect, tangential speech, fearful for your safety, and unable to report a viable plan for food, clothing, and chcf". Pt. cooperative with admission assessment. Pt. is tangential and hyperverbal during interview. Pt. reports that she is here because she had no food and could not pay for propane in her trailer and kept coming to the [facility] [facility] unit. Interventions : Maintained a safe and supportive environment, provided clear and simple instructions, attempted to orient to reality, monitored behaviors and provided intervention as needed, provided active listening and positive encouragement, and maintained Q 15min safety checks. Response : Received report from night order selector. Upon shift, the patient was awake with no acute distress. Had a pleasant attitude when approached. Was looking out the window and talking about how the weather looked. Patient has been cooperative this shift, participated in art activities today. Had some episodes of irritation/ anxiousness, I redirected her and administered PRN ativan which helped decrease the patients anxiety. Patient has needed PRN tylonel to help with her rt knee pain today, which reports is relieved by it. Patient continues to mingle with others throughout the day appropriately. Has been provided a safe environment, and feeling of comfort throughout shift. Patient denies any suicidal thoughts or harm to self at this time. Plan : Pt. continues to require a safe and supportive environment and medication adjustments per Dr. Godfrey.
--- NOTE | 2022-11-16 17:39 | NUR ---
AUTOMOTIVE BRAKE ADJUSTER documentation: I have reviewed all interventions, assessments performed and documented by RY Alberto.
[2022-11-16] MEDS: magnesium hydroxide 30ml (MOM) UD suspension PO PRN (19:24)
[2022-11-16] MEDS: QUEtiapine 25mg tablet PO SCH (20:12)
[2022-11-16] MEDS: traZODone 50mg tablet PO PRN (20:12)
[2022-11-16 20:46] VITALS: BP 126/81
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
--- NOTE | 2022-11-16 22:28 | NUR ---
Pt requested a copy of her current medications so she can take them to [facility], I printed her one and gave it to her.
--- NOTE | 2022-11-16 22:37 | NUR ---
Pt being walked out at this time, she continues to call staff names.
== END 2022-11-16 22:48 | DRG 885 ==
LOC: ER 10:48 → ED HOLD 11-10 14:25 → ADULT MH 11-10 16:21
PROVIDERS: ADMIT Psychiatry & Neurology Psychiatry; ATTEND Psychiatry & Neurology Psychiatry
DX: F39 Unspecified mood [affective] disorder (principal); N18.32 Chronic kidney disease, stage 3b; F25.9 Schizoaffective disorder, unspecified; F43.10 Post-traumatic stress disorder, unspecified; M50.30 Other cervical disc degeneration, unspecified cervical region; I12.9 Hypertensive chronic kidney disease with stage 1 through stage 4 chronic kidney disease, or unspecified chronic kidney disease; Z20.822 Contact with and (suspected) exposure to COVID-19; K21.9 Gastro-esophageal reflux disease without esophagitis; K59.00 Constipation, unspecified; R01.1 Cardiac murmur, unspecified; M19.90 Unspecified osteoarthritis, unspecified site; Z59.00 Homelessness unspecified; Z79.899 Other long term (current) drug therapy; Z88.0 Allergy status to penicillin; Z88.2 Allergy status to sulfonamides; Z91.410 Personal history of adult physical and sexual abuse; Z98.891 History of uterine scar from previous surgery
CPT/HCPCS: 36415; 74018; 80053; 80061; 80305; 80320; 81003; 81025; 83036; 84132; 84443; 85025; 86704; 86705; 86706; 87081; 87340; 87811; 99285; C2617; J0515; J1200; J1630; J2060; Q0177

== ENCOUNTER 2022-12-24 16:08 | Emergency (ER) | payer BC, MEDICAID ==
[~2022-12-24] VITALS: Ht 167.6 cm; Wt 50.0 kg
[~2022-12-24 16:08] MED LIST changes: -CLON-369 PO; +CLON-528 PO; -HYDR50TA65 PO; -LITH300T26 PO; +LORA-269 PO; -ONDA8TAB13 PO; -PANT-47 PO; -QUET150T2 PO; -QUET300T20 PO; +QUET300T5 PO
--- NOTE | 2022-12-24 17:11 | NUR ---
not in lobby at this time.
[2022-12-24 17:12] VITALS: BP 128/84
--- NOTE | 2022-12-24 17:46 | NUR ---
sbar to [place] charge nurse.
== END 2022-12-24 19:29 | disposition left against medical advice (07) ==
LOC: ER 16:08
DX: R07.9 Chest pain, unspecified (principal); Z53.21 Procedure and treatment not carried out due to patient leaving prior to being seen by health care provider
CPT/HCPCS: 99281

== ENCOUNTER 2022-12-30 13:03 | Emergency (ER) | payer BC, MEDICAID ==
[~2022-12-30] VITALS: Ht 167.6 cm; Wt 52.6 kg
[2022-12-30 13:25] VITALS: BP 107/73
== END 2022-12-30 14:48 | disposition left against medical advice (07) ==
LOC: ER 13:03
DX: F41.9 Anxiety disorder, unspecified (principal); Z53.21 Procedure and treatment not carried out due to patient leaving prior to being seen by health care provider
CPT/HCPCS: 99281

== ENCOUNTER 2024-09-25 12:15 | Emergency (ER) | payer BC, MEDICAID ==
[~2024-09-25] VITALS: Ht 167.6 cm; Wt 69.8 kg
[~2024-09-25 12:15] MED LIST changes: -CLON-528 PO; +CLON0.5T2 PO
[2024-09-25 12:23] VITALS: BP 153/84; PULSE 101; RESP 18; O2SAT 97
[2024-09-25] MEDS ORDERED: HYDR-3965 PO (12:58)
[2024-09-25] MEDS ORDERED: CLIN-214 PO (12:58)
[2024-09-25 13:01] VITALS: TEMP 97
== END 2024-09-25 13:03 | disposition home or self-care (01) ==
LOC: ER 12:16
DX: G89.18 Other acute postprocedural pain (principal); F41.9 Anxiety disorder, unspecified; F20.9 Schizophrenia, unspecified; F31.9 Bipolar disorder, unspecified; I10 Essential (primary) hypertension; F12.90 Cannabis use, unspecified, uncomplicated; Z88.0 Allergy status to penicillin; Z88.2 Allergy status to sulfonamides
CPT/HCPCS: 99283